=== PATIENT | male | born 1970 | race Two or more races ===

== ENCOUNTER 2021-09-29 10:13 | Emergency (ER) | payer OTHER ==
[~2021-09-29] VITALS: Ht 165.1 cm; Wt 86.2 kg
[2021-09-29 10:58] VITALS: BP 129/76
[2021-09-29] MEDS ORDERED: IBUP800T27 PO (12:09)
[2021-09-29] MEDS ORDERED: AZIT500T66 PO (12:09)
== END 2021-09-29 12:19 | disposition home or self-care (01) ==
LOC: ER 10:13
DX: G44.209 Tension-type headache, unspecified, not intractable (principal); J03.90 Acute tonsillitis, unspecified
CPT/HCPCS: 70450